=== PATIENT | female | born 1980 | race Caucasian/White ===

== ENCOUNTER 2023-01-25 22:54 | Emergency (ER) | payer OTHER, BC, SELFPAY ==
[2023-01-25 23:06] VITALS: BP 123/68; PULSE 80; RESP 14; TEMP 36.8; O2SAT 98
--- NOTE | 2023-01-25 23:17 | PC.NURSE ---
no information re: post accident testing, [employer] Jeferson called at [phone] and Jeferson states this is his first night on the job and has not yet been trained but will go back to office and look at policies and call ER back with more information. Nurse notified
--- NOTE | 2023-01-25 23:21 | PC.NURSE ---
Patient states she was at work when her foot was ran over by a [employer]. fell to the ground with the machine, was wearing steel toe boots. has mild pain and full ROM of affected foot. patient able to ambulate with steady gait, pulses intact. patient has light abrasions to front ankle and start of swelling to outer left side. patient states pain is minimal. was brought over by her physical therapy supervisor for evaluatiion. patient is workmans comp.
--- NOTE | 2023-01-25 23:26 | XR_ITS ---
The [address] [address] Patient Name: JOSEPHINE JOYNER MRN: [id number] date: 1980 Sex: F Assigned Patient Location: ER Current Patient Location: ED.MAIN Accession/Order Number: [id number] Exam Date: 01/25/2023 23:35 Report Date: 01/26/2023 00:08 At the request of: DILLAN MARKER Procedure: XR tibia fibula LT 2V EXAM: XR ankle LT min 3V, XR tibia fibula LT 2V HISTORY: injury COMPARISON: None. TECHNIQUE: 2 views of the left tibia and fibula and 3 views of the left ankle were obtained. FINDINGS: No acute fracture or dislocation is seen. The ankle mortise is congruent. The joint spaces are preserved. There is a possible small left ankle joint effusion. There is soft tissue edema overlying the anterior aspect of the ankle. XR/XR tibia fibula LT 2V IMPRESSION: 1. Soft tissue edema overlying the anterior aspect of the left ankle with a possible ankle joint effusion. No acute fracture or dislocation is seen. If pain persists, repeat radiographs are recommended in 7-10 days. Electronically authenticated by: Teo WHEELER Date: 01/26/2023 00:08
--- NOTE | 2023-01-25 23:26 | XR_ITS ---
The [address] [id number] Patient Name: JOSEPHINE JOYNER MRN: [id number] date: 1980 Sex: F Assigned Patient Location: ER Current Patient Location: ED.MAIN Accession/Order Number: [id number] Exam Date: 01/25/2023 23:35 Report Date: 01/26/2023 00:08 At the request of: DILLAN MARKER Procedure: XR ankle LT min 3V EXAM: XR ankle LT min 3V, XR tibia fibula LT 2V HISTORY: injury COMPARISON: None. TECHNIQUE: 2 views of the left tibia and fibula and 3 views of the left ankle were obtained. FINDINGS: No acute fracture or dislocation is seen. The ankle mortise is congruent. The joint spaces are preserved. There is a possible small left ankle joint effusion. There is soft tissue edema overlying the anterior aspect of the ankle. XR/XR ankle LT min 3V IMPRESSION: 1. Soft tissue edema overlying the anterior aspect of the left ankle with a possible ankle joint effusion. No acute fracture or dislocation is seen. If pain persists, repeat radiographs are recommended in 7-10 days. Electronically authenticated by: Teo WHEELER Date: 01/26/2023 00:08
--- NOTE | 2023-01-25 23:27 | ED_ITS ---
HPI - Extremity Injury (Lower) General Chief Complaint: Extremity Injury, Lower Stated Complaint: LEFT FOOT Time Seen by Provider: 01/25/23 23:08 Source: patient Mode of arrival: walk-in History of Present Illness HPI Narrative: This 42-year-old female presents for evaluation of left distal tibia-fibula and left ankle injury. The patient was at work and was using a pallet alfonso. She states that there was a piece of wood stuck underneath the pallet so she backed up to release the piece of wood at which time it flew into her foot and twisted her left ankle and struck her in the left distal tibia-fibula area. She states that she sat down on the floor when this happened. She did not fall. She took some Tylenol prior to arrival. She denies any head or neck pain. She has some mild swelling of the lateral malleolus on the left ankle and some superficial abrasions to the medial aspect of the left lower leg. There is no numbness or tingling. She was wearing work boots at the time. She has been ambulatory since the injury and her supervisor microbiology technologists brought her to the emergency department. Related Data Home Medications Medication Instructions Recorded Confirmed paroxetine HCl 20 mg tablet 20 mg PO DAILY 01/25/23 01/25/23 Allergies Allergy/AdvReac Type Severity Reaction Status Date / Time cefaclor [From Ceclor] Allergy Severe Verified 01/25/23 23:06 fexofenadine [From Mohini-D] Allergy Severe Verified 01/25/23 23:06 pseudoephedrine Allergy Severe Verified 01/25/23 23:06 [From Mohini-D] Review of Systems ROS Status of ROS 10 or more systems reviewed and unremarkable except as noted in history and below Exam Narrative Exam Narrative: Nurses note and vital signs reviewed and patient is not hypoxic. General: The patient appears well and in no apparent distress. Patient is resting comfortably on cart. Skin: Warm, dry, no pallor noted. There is no rash noted. Head: Normocephalic, atraumatic Eye: Normal conjunctiva, no drainage, EOMI. PERRL Ears, Nose, Mouth, and Throat: oral mucosa is moist. Nares patent. Mouth without vesicles. Ear canals patent. Tm's without Erythema Cardiovascular: Regular Rate and Rhythm Respiratory: Patient is in no distress, no accessory muscle use, lungs are clear to auscultation, no wheezing, rales or rhonchi Back: non-tender, no CVA tenderness bilaterally to percussion. GI: Normal bowel sounds, no tenderness to palpation, no masses appreciated. No rebound, guarding, or rigidity noted. Musculoskeletal: There He is mild swelling of the left medial malleolus with some mild tenderness. There is no 5th metatarsal tenderness. There is superficial abrasions on the medial aspect of the left lower leg. Ankle joint is stable. There is no calf swelling or tenderness. Toes are intact and are noninjured. Neurological: A&O x4, normal speech Psychiatric: Cooperative Constitutional Vital Signs, click to edit/add: Last Vital Signs Temp 98.2 F 01/25/23 23:06 Pulse 80 01/25/23 23:06 Resp 14 01/25/23 23:06 BP 123/68 01/25/23 23:06 Pulse Ox 98 01/25/23 23:06 O2 Del Method Room Air 01/25/23 23:06 Course Vital Signs Vital signs: Vital Signs Temperature 98.2 F 01/25/23 23:06 Pulse Rate 80 01/25/23 23:06 Respiratory Rate 14 01/25/23 23:06 Blood Pressure 123/68 01/25/23 23:06 Pulse Oximetry 98 01/25/23 23:06 Oxygen Delivery Method Room Air 01/25/23 23:06 Temperature 98.2 F 01/25/23 23:06 Pulse Rate 80 01/25/23 23:06 Respiratory Rate 14 01/25/23 23:06 Blood Pressure 123/68 01/25/23 23:06 Pulse Oximetry 98 01/25/23 23:06 Oxygen Delivery Method Room Air 01/25/23 23:06 MDM - Extremity Injury (Lower) MDM Narrative Medical decision making narrative: This 42-year-old female presents for evaluation of an injury to her left lower leg it occurred at work when she was using a pallet alfonso to change Material and a piece of wood was stuck under the pallet alfonso she reversed it and the piece of wood jumped back and twisted her foot and ankle. She has some superficial abrasions to the medial aspect of the left lower leg, left distal tibia area and some tenderness and swelling to the left lateral malleolus. She is neurovascularly intact. This was updated. She was medicated with ibuprofen. X- rays of the left ankle and left tibia-fibula were reviewed by myself and are normal. A bacitracin dressing and kaley wrap was applied for comfort. Be discharged to follow up with outpatient [facility] Discharge Plan Discharge Chief Complaint: Extremity Injury, Lower Clinical Impression: Contusion of ankle, left, Contusion of left lower leg Patient Disposition: Home, Self-Care Time of Disposition Decision: 00:09 Condition: Good Prescriptions / Home Meds: No Action paroxetine HCl 20 mg tablet 20 mg PO DAILY Instructions: Contusion in Adults (ED) Additional Instructions: Follow up with [facility] for further evaluation and treatment. Use ice, ibuprofen and tylenol as needed for pain Stand Alone Forms: Portal Instructions Referrals: Physician,Non-Staff, MD [Primary Care Provider] - 1 week
[2023-01-25] MEDS: IBUPROFEN 600 MG TABLET PO (23:41)
[2023-01-25] MEDS: ADACEL DIPH,PERTUSS(ACELL),TET VAC/PF 0.5 ML ADULT SYRINGE IM (23:41)
--- NOTE | 2023-01-25 23:56 | PC.NURSE ---
JORDAN Lo maintenance and utilities supervisor Jeferson returned call to inform this nurse that he is unable to find a policy on post accident testing. This nurse informed maintenance and utilities supervisor that the rest of the worker comp paper work will be completed by pt and and pt will need to follow up with [facility] tomorrow. Con[employer] Operator Jeferson verbalized understanding and plans to discuss the post accident testing needs for company if needed.
== END 2023-01-26 00:53 | disposition home or self-care (01) ==
PROVIDERS: Emergency Provider Emergency Medicine
DX: S90.02XA Contusion of left ankle, initial encounter (principal); S80.12XA Contusion of left lower leg, initial encounter; W22.8XXA Striking against or struck by other objects, initial encounter; Z23 Encounter for immunization
CPT/HCPCS: 73590; 73610; 90471; 90715; 99284

== ENCOUNTER 2023-03-01 08:36 | Outpatient (OUT) | payer OTHER, BC, SELFPAY ==
--- NOTE | 2023-03-01 08:42 | XR_ITS ---
The [address] [address] Patient Name: JOSEPHINE JOYNER MRN: [id number] date: 1980 Sex: F Assigned Patient Location: RAD Current Patient Location: RAD Accession/Order Number: [id number] Exam Date: 03/01/2023 09:00 Report Date: 03/01/2023 10:32 At the request of: DONNA LYNNE Procedure: XR ankle LT min 3V PROCEDURE: XR ankle LT min 3V DATE: 03/01/2023 8:00 AM CDT COMPARISONS: None CLINICAL INDICATION: Left Ankle Sprain FINDINGS: There is no evidence of fractures or other osseous abnormalities. The area of bruising is marked on the images without metallic BB. No abnormality seen of the soft tissues with special attention paid to the area of bruising. The ankle mortise is intact. Slight soft tissue prominence anterior and posterior to the tibiotalar joint space on lateral view which could represent ankle joint effusion. Similar findings were seen on previous exam. XR/XR ankle LT min 3V IMPRESSION: Left ankle radiographs show no evidence of osseous abnormalities. Possible ankle joint effusion. Electronically authenticated by: KIM HOLGUIN Date: 03/01/2023 10:32
== END 2023-03-01 08:37 | disposition home or self-care (01) ==
LOC: RAD 08:38
PROVIDERS: Visit Provider Nurse Practitioner Family
DX: S93.402A Sprain of unspecified ligament of left ankle, initial encounter (principal)
CPT/HCPCS: 73610

== ENCOUNTER 2023-03-26 10:06 | Outpatient (OUT) | payer OTHER, SELFPAY ==
--- NOTE | 2023-03-26 10:13 | MR_ITS ---
The [address] [address] Patient Name: JOSEPHINE JOYNER MRN: [id number] date: 1980 Sex: F Assigned Patient Location: MRI Current Patient Location: MRI Accession/Order Number: [id number] Exam Date: 03/26/2023 10:26 Report Date: 03/26/2023 12:00 At the request of: DONNA LYNNE Procedure: MR ankle LT wo con MR ankle LT wo con, 03/26/2023 10:26 AM EDT INDICATION: Left Ankle Injury COMPARISON: X-ray dated 03/01/2023 TECHNIQUE: Multiplanar and multisequential MR images of the left ankle were obtained without contrast . FINDINGS: Muscles and tendons: There is fluid along the peroneus longus from fibula to the distal visualized portion of the tendon and along the flexor hallucis longus and posterior tibialis suggesting of tenosynovitis. The remainder of flexor and extensor tendons and muscles are unremarkable. No abnormality of the peroneus brevis is noted. Achilles tendon is unremarkable. Bone: There is an osteochondral lesion with bone marrow edema along the anterolateral tibial cartilage is noted measuring 7.2 mm (bookmarks). No cortical breach is noted. There is associated increased intra-articular joint effusion. Reactive bone marrow edema along the medial aspect of talus is noted likely contusion. No other osseus lesion is noted. No fracture or dislocation is noted. Sinus Tarsi: No abnormality of sinus Tarsi is noted. Plantar fascia: The plantar fascia is unremarkable. Ligaments: The deep and superficial portions of deltoid are unremarkable. The lateral ligaments are unremarkable. The visualized portion of Lisfranc ligament is unremarkable. No soft tissue abnormality is noted. MR/MR ankle LT wo con IMPRESSION: 1. Osteochondral lesion along the anterolateral aspect of left tibia with increase tibiotalar joint effusion. No cortical breach. 2. Contusion of the medial aspect of the talus. No fracture. 3. Tenosynovitis of the left peroneus longus, tibialis posterior and flexor hallucis longus. Electronically authenticated by: J LUIS FERNANDEZ Date: 03/26/2023 12:00
== END 2023-03-26 10:07 | disposition home or self-care (01) ==
LOC: MRI 10:06
PROVIDERS: Visit Provider Nurse Practitioner Family
DX: S99.912A Unspecified injury of left ankle, initial encounter (principal); X58.XXXA Exposure to other specified factors, initial encounter; M67.874 Other specified disorders of tendon, left ankle and foot
CPT/HCPCS: 73721

== ENCOUNTER 2023-04-23 12:54 | Outpatient (RCR) | payer OTHER, SELFPAY | END 2023-06-24 07:00 | disposition home or self-care (01) | LOC: PT 12:54 | PROVIDERS: Visit Provider Podiatrist Foot & Ankle Surgery | DX: M76.70 Peroneal tendinitis, unspecified leg (principal); M76.829 Posterior tibial tendinitis, unspecified leg | CPT/HCPCS: 97010; 97014; 97110; 97112; 97162 ==

== ENCOUNTER 2023-05-24 09:13 | Outpatient (OUT) | payer OTHER, SELFPAY ==
--- NOTE | 2023-05-24 | XR_ITS ---
The [address] [address] Patient Name: JOSEPHINE JOYNER MRN: [id number] date: 1980 Sex: F Assigned Patient Location: [facility] Current Patient Location: Accession/Order Number: [id number] Exam Date: 05/24/2023 09:30 Report Date: 05/25/2023 12:29 At the request of: MELISSA DUKE Procedure: XR ankle LT min 3V PROCEDURE: XR ankle LT min 3V HISTORY: LEFT ANKLE PAIN follow-up COMPARISON: XR ankle left 03/01/2023 FINDINGS: BONES:No fracture, dislocation, periosteal reaction. Small lucency along anterior margin of the tibial plafond may represent the osteochondral lesion along the anterior lateral margin of the tibia described on prior MRI. SOFT TISSUES:No visible soft tissue swelling. EFFUSION:None visible. OTHER: Negative. XR/XR ankle LT min 3V IMPRESSION: 1. No acute bone abnormality or significant degenerative joint disease. Electronically authenticated by: JOSE ROJAS Date: 05/25/2023 12:29
== END 2023-05-24 09:14 | disposition home or self-care (01) ==
PROVIDERS: Visit Provider Physician Assistant
DX: M25.572 Pain in left ankle and joints of left foot (principal)
CPT/HCPCS: 73610

== ENCOUNTER 2023-06-19 09:25 | Outpatient (OUT) | payer OTHER, SELFPAY ==
--- NOTE | 2023-06-19 09:29 | CT_ITS ---
[address] [address] Patient Name: JOSEPHINE JOYNER MRN: [id number] date: 1980 Sex: F Assigned Patient Location: CT Current Patient Location: CT Accession/Order Number: [id number] Exam Date: 06/19/2023 09:44 Report Date: 06/19/2023 10:41 At the request of: DONNA LYNNE Procedure: CT ankle LT wo con EXAMINATION: CT ankle LT wo con HISTORY: contusion of lt ankle COMPARISON: XR ankle left 05/24/2023 TECHNIQUE: Multi-planar CT images were created without and/or with IV contrast according to examination type. Dose reduction techniques were achieved by using automated exposure control and/or adjustment of mA and/or kV according to patient size and/or use of iterative reconstruction technique. FINDINGS: BONES: Small, thin cortical irregularity involving the anterior margin of the tibial plafond suspicious for remote cortical disruption. No articular surface involvement. SOFT TISSUES: Negative. No visible soft tissue swelling. EFFUSION: None visible. OTHER: Negative. CT/CT ankle LT wo con IMPRESSION: 1. Suspect subacute small, subtle cortex fracture at the anterior margin of the tibial plafond; no articular surface involvement. 2. No appreciable soft tissue swelling. Electronically authenticated by: JOSE ROJAS Date: 06/19/2023 10:41
== END 2023-06-19 09:26 | disposition home or self-care (01) ==
LOC: CT 09:25
PROVIDERS: Visit Provider Nurse Practitioner Family
DX: S90.02XA Contusion of left ankle, initial encounter (principal)
CPT/HCPCS: 73700

== ENCOUNTER 2023-07-25 10:34 | Outpatient (OUT) | payer SELFPAY ==
--- OUTSIDE RECORDS SUMMARY | 2023-07-25 10:44 | XMS_ITS | CCD ---
Author Name Unknown Address [address] [place] [id number] Organization [facility] Care Team Providers Care Compliance Investigator Name Role Phone ANDI ALCALA Unavailable Unavailable ANDI ALCALA Unavailable Unavailable ANDI ALCALA Unavailable Unavailable SULAIMAN REEDER Unavailable Unavailable SULAIMAN REEDER Unavailable Unavailable RADHA CUTLER Unavailable Unavailable SULAIMAN REEDER Unavailable Unavailable NON STAFF Primary Care Unavailable Nate Juárez Attending Unavailab Nate Olguin Admitting Unavailab le Allergies Allergy Classification Reported Allergen(s) Allergy Type Date of Onset Reaction(s) Facility (1 source) hydrocortisone / neomycin Drug Allergy 7 AOF [facility] Repository (1 source) Unable to Assess Drug allergy (disorder) 4 [facility] Repository Problems Active Problems Problem Classification Problem Date Documented Da te Episodic/Chronic Headache, including migraine (1 source) Migraine, unspecified, not intractable, without status migrainosus; Translations: [MIGRAINE UNS NOT INTRACT W/O SM] Onset: 03-23-2017 Chronic Substance-related disorders (1 source) Nicotine dependence, cigarettes, uncomplicated; Translations: [NICOTINE DEPEND CIGARETTES UNCOMP] Onset: 08-09-2017 Chronic Unclassified (1 source) Unspecified coma; Translations: [Unspecified coma] Onset: 07-16-2023 Past or Other Problems Problem Classification Problem Date Documented Da te Episodic/Chronic Fever of unknown origin (3 sources) Fever, unspecified; Translations: [FEVER UNSPECIFIED] Onset: 08-07-2017 Episodic Headache, including migraine (3 sources) Headache; Translations: [HEADACHE] Onset: 03-19-2017 Episodic Nausea and vomiting (1 source) Nausea with vomiting, unspecified; Translations: [NAUSEA WITH VOMITING UNSPECIFIED] Onset: 08-09-2017 Episodic Other upper respiratory infections (1 source) Acute upper respiratory infection, unspecified; Translations: [ACUTE UP RESPIRATORY INFECTION UNS] Onset: 08-09-2017 Episodic Viral infection (1 source) Viral infection, unspecified; Translations: [VIRAL INFECTION UNSPECIFIED] Onset: 08-09-2017 Episodic Results Test Name Value Interpretation Reference Range Facility MR head/brain wo/w conon MR head/brain wo/w con [facility] [place] [address] [place] [address] MRI Report Signed Patient: Jana Talbot MR#: [id number] : 1980 Acct:[id number] Age/Sex: 42 / F ADM Date: 07/16/23 Loc: MR Room: Type: [facility] Attending Dr: Nate Juárez DO Copies to: Nate Juárez DO Ordering Provider: Nate Juárez DO Date of Service: 07/16/23 MR/MR head/brain wo/w con: R40.20 MR head/brain wo/w con 07/16/2023 3:02 PM SIGN AND SYMPTOMS: Syncopal episode PROTOCOL: Multiplanar multisequence MR images of the brain were obtained with and without IV contrast CONTRAST: 11 mL of intravenous ProHance COMPARISON: None. FINDINGS: Extra axial spaces: Age appropriate. Hemorrhage: None. Ventricular system: Within normal limits. Basal cisterns: Within normal limits and not effaced. Cerebral parenchyma: Nonspecific T2 and FLAIR hyperintense signal is noted in the subcortical white matter of the frontal lobes bilaterally. Midline shift: None.. Cerebellum: Within normal limits. Brainstem: Within normal limits. OTHER: Calvarium: Normal marrow signal. Vascular system: Satisfactory flow voids within the anterior and posterior circulation. Visualized Paranasal sinuses: Within normal limits. Visualized Orbits: Within normal limits. Visualized upper cervical spine: Within normal limits. Sella and skull base: Within normal limits. MR/MR head/brain wo/w con IMPRESSION: Nonspecific T2 and FLAIR hyperintense signal is noted in the subcortical white matter of the frontal lobes bilaterally. No acute intracranial pathology or abnormal postcontrast enhancement. Impression dictated by: Andi Juárez M.D.07/16/2023 5:06 PM Dictation Location: [place] [address] Transcribed By: BRIDGETT 07/16/231705 Dictated By: Andi Juárez II, MD 07/16/238 Signed By: 07/16/23 170 Normal [facility] Outside Recordson 09-19-2022 Outside Records [id number]:127 Normal [facility] CBC AUTO DIFFon 08-07-2017 Basophils Auto #/vol (Bld) 0.1 103/ul Normal 0.0-0.1 [facility] Comment on above: Performed By: #### C BC ####[facility] [address] [place] [id number] Basophils/100 WBC Auto (Bld) 0.8 % Normal 0.2-2.0 [facility] Comment on above: Performed By: #### C BC ####[facility] Xhmcdumnho5402 [place], [place] [address]Dvbwbz [place] Eosinophils 0.0 103/ul Normal 0.0-0.7 [facility] Comment on above: Performed By: #### C BC ####[facility] Pbsmcymwcs6750 [place] [id number] [place] Eosinophils/100 leukocytes 0.6 % Critically low 0.9-7.0 [facility] Comment on above: Performed By: #### C BC ####[facility] Flpfiayxtd1523 [place], [place] [address]Vyvvbp [place] Erythrocyte distribution width Auto Ratio (RBC) 12.9 % Normal 11.0-15.0 [facility] Comment on above: Performed By: #### C BC ####[facility] Ywbyjouvnc0309 [place], [place] [address]Jafphf [place] Erythrocytes (RBC) 4.87 106/ul Normal 4.20-5.40 [facility] Comment on above: Performed By: #### C BC ####[facility] Uaphxclzpa6886 [place], [place] [address]Kxpdfq [place] Hematocrit (HCT) 41.7 % Normal 36.0-48.0 [facility] Comment on above: Performed By: #### C BC ####[facility] Kdtre[address]qyd[address] [place] Hemoglobin mass conc (Bld) 13.4 g/dL Normal 12.0-16.0 [facility] Comment on above: Performed By: #### C BC ####[facility] Ryblcjftdz1427 [address] [place] IG # 0.02 10e3/ul Normal 0.00-0.03 [facility] Comment on above: Performed By: #### C BC ####[facility] [address] [place] [address] [place] IG % 0.3 % Normal 0.0-0.5 [facility] Comment on above: Performed By: #### C BC ####[facility] [address] [place] [address] [place] Lymphocytes 0.9 103/ul Critically low 1.2-3.8 [facility] Comment on above: Performed By: #### C BC ####[facility] [address] [place] [address] [place] Lymphocytes/100 leukocytes 13.0 % Critically low 20.5-60.0 [facility] Comment on above: Performed By: #### C BC ####[facility] [address] [place] [address] [place] MANUAL DIFF REQ NO Normal [facility] Comment on above: Performed By: #### C BC ####[facility] [address] [place] [address] [place] MCH 27.5 pg Normal 26.7-34.0 [facility] Comment on above: Performed By: #### C BC ####[facility] [address] [place] [address] [place] MCHC mass conc (RBC) 32.1 g/dL Normal 29.9-35.2 [facility] Comment on above: Performed By: #### C BC ####[facility] [address] [place] [address] [place] MCV 85.6 fL Normal 81.0-99.0 [facility] Comment on above: Performed By: #### C BC ####[facility] Zqfcvozpjo8933 [place], [place] [address]Irdwuw [place] Monocytes 0.7 103/ul Normal 0.3-0.8 [facility] Comment on above: Performed By: #### C BC ####[facility] Zfknmjnpvj8984 [place], [place] [address]Roanru [place] Monocytes/100 leukocytes 10.2 % Normal 1.7-12.0 [facility] Comment on above: Performed By: #### C BC ####[facility] Eibgdqaihy5353 [place], [place] [address]Exfthx [place] Neutrophils 5.0 103/ul Normal 1.4-6.5 [facility] Comment on above: Performed By: #### C BC ####[facility] Ynublbhrrp3901 [place], [place] [address]Devpit [place] Neutrophils/100 WBC Auto (Bld) 75.1 % Critically high 43.0-75.0 [facility] Comment on above: Performed By: #### C BC ####[facility] Yqoukziczc6300 [place], [place] [address]Jwhlxl [place] Platelet mean volume (PMV) 10.7 fL Normal 9.5-13.5 [facility] Comment on above: Performed By: #### C BC ####[facility] Ostfxupbof2119 [place], [place] [address]Lrhusr [place] Platelets 337 103/ul Normal 150-450 [facility] Comment on above: Performed By: #### C BC ####[facility] Vgirxrptxw2394 [place], [place] [address]Teiffp [place] WBC (Leukocytes) 6.6 103/ul Normal 4.0-11.0 [facility] Comment on above: Performed By: #### C BC ####[facility] Auxwtlhxae2833 [place], [place] [address]Aediws [place] CULTURE URINEon 08-07-2017 CULTURE URINE Culture Observations: PRELIM ABNORMAL NOTFD FAXD PATRICE@/18/ RK Culture Observations: Final, scanned result to follow in HPF Normal [facility] Comment on above: Performed By: #### C RADHA ####[facility] Mbcazcrjgt3110 [address] [place] ER URINE PROFILEon 8 Bilirubin (total) Negative Normal NEGATIVE [facility] Comment on above: Performed By: #### Artis JIMENEZ UMICRO ####[facility] Hmloplajqf4023 [address] [place] BLOOD TRACE-INTACT Normal NEGATIVE [facility] Comment on above: Performed By: #### LUIS NEWTONICRO ####[facility] Sdxjzwaqyy3286 [address] [place] ERUAHD A micrscopic examination will be performed if indicated. Normal [facility] Comment on above: Performed By: #### Artis JIMENEZ UMICRO ####[facility] Ymtsaqxkxf2290 [address] [place] Glucose mass conc Negative Normal NEGATIVE [facility] Comment on above: Performed By: #### Artis JIMENEZ UMICRO ####[facility] Ygykepakob7795 [address] [place] pH of blood 7.0 [pH] Normal 5-9 [facility] Comment on above: Performed By: #### Artis JIMENEZ UMICRO ####[facility] Ivwnhmywfl0633 [address] [place] Protein Negative Normal [facility] Comment on above: Performed By: #### Artis JIMENEZ UMICRO ####[facility] Cvnvljlgog6718 [address] [place] SPEC GRAVITY 1.015 Normal 1.005-<=1.025 [facility] Comment on above: Performed By: #### Artis JIMENEZ UMICRO ####[facility] Fzwzskgcvv42[address] [place] UR MICRO IND INDICATED Normal [facility] Comment on above: Performed By: #### LUIS NEWTONICRO ####[facility] Ydjqazrwmb3537 [place] [id number] Urine, clarity CLEAR Normal [facility] Comment on above: Performed By: #### NELLI NEWTON ####[facility] Ebbpejjujn3573 [place] [address]ken [place] Urine, color LT. YELLOW Normal YELLOW [facility] Comment on above: Performed By: #### SHREE NEWTONRO ####[facility] Fouhwsvkzi9756 [place] [address]ken [place] Urine, ketones presence Negative Normal NEGATIVE [facility] Comment on above: Performed By: #### SHREE NEWTONRO ####[facility] Hkgewzyscy3854 [address] [place] Urine, nitrite presence Positive Normal NEGATIVE [facility] Comment on above: Performed By: #### SHREE NEWTONRO ####[facility] [address] [place] [address] [place] Urine, urobilinogen 0.2 {Poli'U}/dL Normal [facility] Comment on above: Performed By: #### SHREE NEWTONRO ####[facility] Virsceujgj[address] [place] [address] [place] WBC (Leukocytes) Negative Normal NEGATIVE [facility] Comment on above: Performed By: #### SHREE NEWTONRO ####[facility] Byuglxncnx0063 [address] [place] PREG HCG QUALon 08-07-2017 , QUAL Negative Normal NEGATIVE [facility] Comment on above: Performed By: #### P REG ####[facility] [address] [place] [address] [place] PROF 14(COMP METB)on 018 Alanine aminotransferase (ALT) 28 U/L Normal 9- [facility] Comment on above: Performed By: #### C MP ####[facility] [address] [place] [address] [place] Albumin 4.5 g/dL Normal 3.5-5.0 [facility] Comment on above: Performed By: #### C MP ####[facility] Inbkfiazov9661 [address] [place] Albumin/Globulin Ratio 1.5 {ratio} Normal T [facility] Comment on above: Performed By: #### C MP ####[facility] Peecwcuwcc8177 [place] [address]ken [place] Alkaline phosphatase (ALP) 71 U/L Normal 38-126 [facility] Comment on above: Performed By: #### C MP ####[facility] Q[address] [place] [address] [place] Anion gap 14.5 mmol/L Normal [facility] Comment on above: Performed By: #### C MP ####[facility] [address]ty[address] [place] [address] [place] Aspartate aminotransferase (AST) 18 U/L Normal 14-36 [facility] Comment on above: Performed By: #### C MP ####[facility] [address]fci[address] [place] [address] [place] Bilirubin Ql (U) 0.3 mg/dL Normal 0.2-1.3 [facility] Comment on above: Performed By: #### C MP ####[facility] [address] [place] [address] [place] BUN/Creatinine Ratio 7.8 mg/mg Normal [facility] Comment on above: Performed By: #### C MP ####[facility] [address] [place], [place] [address]Ger[address] [place] Calcium 9.6 mg/dL Normal 8.4-10.2 [facility] Comment on above: Performed By: #### C MP ####[facility] [address]arqs[address] [place], [place] [address] [place] Chloride 99 mmol/L Normal 98-107 [facility] Comment on above: Performed By: #### C MP ####[facility] [address]vens[address] [place], [place] [address] [place] CO2 25.0 mmol/L Normal 22.0-30.0 [facility] Comment on above: Performed By: #### C MP ####[facility] Svvqvgebdm2234 [place] [address] Creatinine 0.73 mg/dL Normal 0.52-1.04 [facility] Comment on above: Performed By: #### C MP ####[facility] Fmmlaibfiz7525 [place], [place] [address]Xzhwag [place] eGFR (non-black) mL/min/{1.73_m2} Normal >=60 [facility] Comment on above: Performed By: #### C MP ####[facility] Sdmstibgij2490 [place] [address] Globulin 3.1 g/dL Normal [facility] Comment on above: Performed By: #### C MP ####[facility] [address] [place], [place] [address]Gerken [place] Glucose mass conc 108 mg/dL Critically high 74-106 [facility] Comment on above: Performed By: #### C MP ####[facility] [address] [place], [place] [address]Gerken [place] Potassium molar conc 3.6 mmol/L Normal 3.4-5.0 [facility] Comment on above: Performed By: #### C MP ####[facility] [address] [place], [place] [address]Gerken [place] Protein 7.6 g/dL Normal 6.1-8.2 [facility] Comment on above: Performed By: #### C MP ####[facility] Jhzlhgvgvs4086 [place] [address] Sodium 136 mmol/L Critically low 137-145 [facility] Comment on above: Performed By: #### C MP ####[facility] Yfaoegjrgu8977 [place] [address] Urea nitrogen 6.0 mg/dL Critically low 7.0-17.0 [facility] Comment on above: Performed By: #### C MP ####[facility] Ougoczouhz9974 [place], [place] [address]Ejpfqy [place] URINE MICROSCOPIC ONLYon CAST NONE SEEN Normal NONE SEEN [facility] Comment on above: Performed By: #### NELLI NEWTON ####[facility] Vqpcpcckua2980 [place], [place] [address]Oodpxf [place] CULTURE INDICATED Normal [facility] Comment on above: Performed By: #### NELLI NEWTON ####[facility] Vmhxkhcaty1832 [place], [place] [address]Jfgopq [place] Erythrocytes (RBC) 2-5 Normal 0-2 [facility] Comment on above: Performed By: #### NELLI NEWTON ####[facility] Ucplchliyc5058 [place], [place] [address]Ngnpjc [place] MUCOUS NONE SEEN Normal NONE SEEN [facility] Comment on above: Performed By: #### NELLI NEWTON ####[facility] Nnlzmixfzb3541 [place], [place] [address]Zucxyi [place] Urine, bacteria in sediment LARGE Normal NONE SEEN [facility] Comment on above: Performed By: #### NELLI NEWTON ####[facility] Vldcbpwepa8937 [place], [place] [address]Knxqba [place] Urine, crystals in sediment NONE SEEN Normal NONE SEEN [facility] Comment on above: Performed By: #### NELLI NEWTON ####[facility] Ibljgqdhvn2155 [place] [address] Urine, epithelial cells in sediment FEW Normal [facility] Comment on above: Performed By: #### SHREE NEWTONRO ####[facility] Onuunceqfn1297 [place], [place] [address]Ggzycf [place] WBC (Leukocytes) 0-2 Normal NONE SEEN [facility] Comment on above: Performed By: #### SHREE NEWTONRO ####[facility] Ogixrrmjpi4463 [place], [place] [address]Qmheiy [place] Encounters Encounter Date Encounter Type Care Provider Facility Start: 07-16-2023 End: 07-16-2023 ambulatory NON STAFF Facility:[facility] Start: 09-15-2022 ambulatory Facility:[facility] Start: 08-07-2017 End: 08-07-2017 Ambulatory SULAIMAN REEDER Facility:[facility] Start: 03-19-2017 End: 03-19-2017 Ambulatory ANDI ALCALA Facility:[facility] Payers Date Payer Category Payer Self-pay 2023 Unknown [id number] 2010 Unknown [id number] 1980 Unknown [id number] 2.16.8 [id number] 1980 Unknown [id number] 2.16.8 [id number] 1959 Self-pay [id number] Unknown [id number] 2.16.8 [id number] Summary Purpose Family History No Family History Records FoundNo Family History Records FoundNo Family History Records Found Advance Directives No Advanced Directives Records FoundNo Advanced Directives Records FoundNo Advanced Directives Records Found Additional Source Comments INFORMATION SOURCE (unrecogn ized section and content) DATE CREATED AUTHOR [facility]/14/2017 [facility] DATE CREATED AUTHOR AUTHOR'S ORGANIZ ATION 09/23/2022 [facility] DATE CREATED AUTHOR AUTHOR'S ORGANIZ ATION 07/22/2023 [facility] FOR RECORDS PERTAINING TO PATIENTS WHO ARE OR HAVE BEEN ENROLLED IN A CHEMICAL DEPENDENCY/SUBSTANCEABUSE PROGRAM, SOME INFORMATION MAY BE OMITTED. This clinical summary was aggregated from multiple sources. Caution should be exercised in using it in the provision of clinical care. This summary normalizes information from multiple sources, and as a consequence, information in this document may materially change the coding, format and clinical context of patient data. In addition, data may be omitted in some cases. CLINICAL DECISIONS SHOULD BE BASED ON THE PRIMARY CLINICAL RECORDS. [employer] provides no warranty or guarantee of the accuracy or completeness of information in this document.
--- NOTE | 2023-07-25 11:25 | PM.PRESUREVA ---
History of Present Illness History of Present Illness Chief complaint: contusion of left lower leg and left ankle Narrative: Patient presents for preadmission testing. The patient states she had a work injury in January 2023 and has a contusion and pain to her left ankle and lower leg. The patient states she does wear her boot and takes Mobic which helps relieve some pain. She denies numbness, tingling, Or weakness. The patient states she had a syncopal episode/questionable seizure on 06/02/2023 and has been evaluated by advanced neurology and had an MRI and EEG both of which were negative. Review of Systems ROS Narrative REVIEW OF SYSTEMS: Negative except as stated in HPI, ten or more systems reviewed. Constitutional: No fever , chills, weakness ENT: No sore throat or epistaxis Cardiovascular: No edema, chest pain, palpitations, or activity intolerance Respiratory: No shortness of breath, cough, or wheezing Gastrointestinal: No abdominal pain, constipation, diarrhea, or vomiting Genitourinary: No dysuria or hematuria Neurological: No numbness, tingling, weakness, or headache Psychiatric: No mood changes [facility] Medical History (Updated 07/25/23 @ 11:11 by Deisy Hernandez NP) Seasonal allergies ?J30.2 - Other seasonal allergic rhinitis (ICD-10) Depression ?F32.A - Depression, unspecified (ICD-10) Panic attacks ?F41.0 - Panic disorder [episodic paroxysmal anxiety] (ICD-10) Anxiety ?F41.9 - Anxiety disorder, unspecified (ICD-10) Postoperative nausea and vomiting ?R11.2 - Nausea with vomiting, unspecified (ICD-10) ?Z98.890 - Other specified postprocedural states (ICD-10) Urinary tract infection ?N39.0 - Urinary tract infection, site not specified (ICD-10) Seizures (06/02/23) ?R56.9 - Unspecified convulsions (ICD-10) Migraine ?G43.909 - Migraine, unspecified, not intractable, without status migrainosus (ICD-10) Dental abscess ?K04.7 - Periapical abscess without sinus (ICD-10) Ankle pain ?M25.579 - Pain in unspecified ankle and joints of unspecified foot (ICD-10) Contusion of left ankle ?S90.02XA - Contusion of left ankle, initial encounter (ICD-10) Contusion of left lower leg ?S80.12XA - Contusion of left lower leg, initial encounter (ICD-10) Surgical History (Updated 07/25/23 @ 11:03 by Deisy Hernandez NP) History of tubal ligation ?Z98.51 - Tubal ligation status (ICD-10) H/O ovarian cystectomy ?Z98.890 - Other specified postprocedural states (ICD-10) ?Z87.42 - Personal history of other diseases of the female genital tract (ICD-10) H/O section ?Z98.891 - History of uterine scar from previous surgery (ICD-10) Family History (Updated 07/25/23 @ 11:03 by Deisy Hernandez NP) Other Family history of cervical cancer Family history of diabetes mellitus Family history of heart disease Family history of lung cancer Family history of seizures Social History (Updated 07/25/23 @ 10:54 by Deisy Hernandez NP) Smoking status: Current every day smoker What tobacco products do you use: cigarettes Packs per day: 0.25 Years smoked: 25 Smoking pack-years: 6.25 Non-prescribed substance use: denies use Previous occupational history: Senior Revenue Accountant -factory Highest level of school completed/degree received: high school graduate Meds Home Medications and Allergies Home Medications Medication Instructions Recorded Confirmed Type paroxetine HCl 20 mg tablet 20 mg PO DAILY 01/25/23 07/25/23 History meloxicam 7.5 mg tablet 7.5 mg PO BID PRN pain 07/25/23 07/25/23 History sumatriptan succinate 100 mg See Rx Instructions PO .COMPLEX 07/25/23 07/25/23 History tablet (Imitrex) Allergies Allergy/AdvReac Type Severity Reaction Status Date / Time fexofenadine [From Mohini-D] Allergy Severe Verified 01/25/23 23:06 pseudoephedrine Allergy Severe Verified 01/25/23 23:06 [From Mohini-D] Exam Narrative Exam Narrative: Constitutional: Awake, alert, comfortable, well-appearing, nontoxic, interactive, vital signs as charted Head: Normocephalic, atraumatic Neck: Supple, normal appearance, normal range of motion, no meningeal signs, no lymphadenopathy Respiratory: No respiratory distress, breath sounds clear Cardiovascular: Regular rate and rhythm, strong and regular heart tones Musculoskeletal: CAM Walking boot intact left lower extremity Skin: No rashes or induration, no lesions, only visible skin inspected Neuro: No neurological deficits, normal sensation Psychiatric: Oriented ?3, normal affect Assessment and Plan Assessment and Plan (1) Contusion of left ankle: (2) Contusion of left lower leg: Plan Left ankle joint arthroscopy with debridement of cortical lesion and possible backfilling, stress exam, lateral ankle stabilization, soft tissue/tendon repairs scheduled with Dr. Resendiz 08/06/2023.
== END 2023-07-25 10:35 | disposition home or self-care (01) ==
LOC: PST 10:36
PROVIDERS: PCP Nurse Practitioner Family; Visit Provider Podiatrist Foot & Ankle Surgery
DX: Z01.818 Encounter for other preprocedural examination (principal); S80.12XA Contusion of left lower leg, initial encounter; S90.02XA Contusion of left ankle, initial encounter
CPT/HCPCS: G0463

== ENCOUNTER 2023-08-06 06:10 | Day surgery (SDC) | payer OTHER, SELFPAY ==
[2023-07-25 11:19] VITALS: BP 132/76; PULSE 82; RESP 18; TEMP 36.3; O2SAT 97; BMI 19.6
[2023-08-06] VITALS (12 sets, daily range): BP systolic 108–152; BP diastolic 63–84; PULSE 74–117; RESP 13–22; TEMP 36.2–36.4; O2SAT 96–100; BMI 20.8
--- NOTE | 2023-08-06 | FL_ITS ---
[place] [id number] Patient Name: JOSEPHINE JOYNER MRN: [id number] date: 1980 Sex: F Assigned Patient Location: [facility] Current Patient Location: [facility] Accession/Order Number: [id number] Exam Date: 08/06/2023 08:00 Report Date: 08/08/2023 08:24 At the request of: RHONDA RAMIREZ Procedure: FL fluoroscopy <1hr NON-READ EXAM: FL fluoroscopy <1hr NON-READ HISTORY: TECHNIQUE: FINDINGS: Please see Operative Report. Electronically authenticated by: RADIOLOGIST NO Date: 08/08/2023 08:24
--- OUTSIDE RECORDS SUMMARY | 2023-08-06 06:13 | XMS_ITS | CCD ---
Author Name Unknown Address [address] [place] [id number] Organization [facility] Care Team Providers Care Telesales Manager Name Role Phone ANDI ALCALA Unavailable Unavailable [...] / neomycin Drug Allergy 7 [facility] Repository (1 source) Unable to Assess Drug allergy (disorder) 4 [facility] Repository Problems Active Problems Problem Classification Problem [...] head/brain wo/w conon MR head/brain wo/w con [facility] Main [place] [address] [place] [address] MRI Report Signed Patient: Jana Talbot MR#: [id number] : 1980 Acct:[id number] Age/Sex: 42 / F ADM Date: 07/16/23 Loc: MR Room: Type: [facility] Attending Dr: Nate Juárez DO Copies to: [...] Andi Juárez M.D.07/16/2023 5:06 PM Dictation Location: [place] [address] Transcribed By: BRIDGETT 07/16/231705 Dictated By: Andi Juárez II, MD 07/16/238 Signed By: 07/16/23 170 Normal [facility] Outside Recordson 09-19-2022 Outside Records [id number] F0#[id number]:127 Normal [facility] CBC AUTO DIFFon 08-07-2017 Basophils Auto #/vol (Bld) 0.1 103/ul Normal 0.0-0.1 [facility] Comment on above: Performed By: #### C BC ####[facility] Lpuxbklkyt6315 [place] [id number] Basophils/100 WBC Auto (Bld) 0.8 % Normal 0.2-2.0 [facility] Comment on above: Performed By: #### C BC ####[facility] Xurovjqqux2149 [place], [place] [address]Fmqofy [place] Eosinophils 0.0 103/ul Normal 0.0-0.7 [facility] Comment on above: Performed By: #### C BC ####[facility] Vnyuniooae7966 [place] [id number] Eosinophils/100 leukocytes 0.6 % Critically low 0.9-7.0 [facility] Comment on above: Performed By: #### C BC ####[facility] Onbgxxikvn7239 [place], [place] [address]Odsqwx [place] Erythrocyte distribution width Auto Ratio (RBC) 12.9 % Normal 11.0-15.0 [facility] Comment on above: Performed By: #### C BC ####[facility] Wenowfhujz8370 [place], [place] [address]Jhdydf [place] Erythrocytes (RBC) 4.87 106/ul Normal 4.20-5.[address] [facility] Comment on above: Performed By: #### C BC ####[facility] Inqgmlwukv4381 [place], [place] [address]Qdgkmz [place] Hematocrit (HCT) 41.7 % Normal 36.0-48.0 [facility] Comment on above: Performed By: #### C BC ####[facility] Kapafyydln7174 [address] [place] Hemoglobin mass conc (Bld) 13.4 g/dL Normal 12.0-16.0 [facility] Comment on above: Performed By: #### C BC ####[facility] Rynjzcmhsd0726 [address] [place] IG # 0.02 10e3/ul Normal 0.00-0.03 [facility] Comment on above: Performed By: #### C BC ####[facility] [address] [place] [address] [place] IG % 0.3 % Normal 0.0-0.5 [facility] Comment on above: Performed By: #### C BC ####[facility] [address] [place] [address] [place] Lymphocytes 0.9 103/ul Critically low 1.2-3.8 [facility] Comment on above: Performed By: #### C BC ####[facility] [address] [place] [address] [place] Lymphocytes/100 leukocytes 13.0 % Critically low 20.5-60.0 [facility] Comment on above: Performed By: #### C BC ####[facility] [address] [place] [address] [place] MANUAL DIFF REQ NO Normal [facility] Comment on above: Performed By: #### C BC ####[facility] [address] [place] [address] [place] MCH 27.5 pg Normal 26.7-34.0 [facility] Comment on above: Performed By: #### C BC ####[facility] Z[address] [place] [address] [place] MCHC mass conc (RBC) 32.1 g/dL Normal 29.9-35.2 [facility] Comment on above: Performed By: #### C BC ####[facility] [address] [place] [address] [place] MCV 85.6 fL Normal 81.0-99.0 [facility] Comment on above: Performed By: #### C BC ####[facility] Jiyvdhjokw0139 [place], [place] [address]Dqjrbg [place] Monocytes 0.7 103/ul Normal 0.3-0.8 [facility] Comment on above: Performed By: #### C BC ####[facility] Vdukvfqiun6886 [place], [place] [address]Eqmzlq [place] Monocytes/100 leukocytes 10.2 % Normal 1.7-12.0 [facility] Comment on above: Performed By: #### C BC ####[facility] Fnayfldxzh9854 [place], [place] [address]Ijcpyq [place] Neutrophils 5.0 103/ul Normal 1.4-6.5 [facility] Comment on above: Performed By: #### C BC ####[facility] Zrurgtswqy2036 [place], [place] [address]Kgeadb [place] Neutrophils/100 WBC Auto (Bld) 75.1 % Critically high 43.0-75.0 [facility] Comment on above: Performed By: #### C BC ####[facility] Sbvooltzjn4725 [place], [place] [address]Ghqguy [place] Platelet mean volume (PMV) 10.7 fL Normal 9.5-13.5 [facility] Comment on above: Performed By: #### C BC ####[facility] Oxzxqfiwdi5335 [place], [place] [address]Gdivfo [place] Platelets 337 103/ul Normal 150-450 [facility] Comment on above: Performed By: #### C BC ####[facility] Quecpxrvkn5398 [place], [place] [address]Wcowue [place] WBC (Leukocytes) 6.6 103/ul Normal 4.0-11.0 [facility] Comment on above: Performed By: #### C BC ####[facility] Mwibzwdvux1497 [place], [place] [address]Zblpjm [place] CULTURE URINEon 08-07-2017 CULTURE URINE Culture Observations: PRELIM ABNORMAL NOTFD FAXD PATRICE@/18/ RK Culture Observations: Final, scanned result to follow in HPF Normal [facility] Comment on above: Performed By: #### C RADHA ####[facility] Ytpbchxijd3474 [address] [place] ER URINE PROFILEon 8 Bilirubin (total) Negative Normal NEGATIVE [facility] Comment on above: Performed By: #### Artis JIMENEZ UMICRO ####[facility] Hphsnswyus6592 [address] [place] BLOOD TRACE-INTACT Normal NEGATIVE [facility] Comment on above: Performed By: #### LUIS NEWTONICRO ####[facility] Ufpvrgpugo9048 [address] [place] ERUAHD A micrscopic examination will be performed if indicated. Normal [facility] Comment on above: Performed By: #### Artis JIMENEZ UMICRO ####[facility] Uulaumkjab9548 [address] [place] Glucose mass conc Negative Normal NEGATIVE [facility] Comment on above: Performed By: #### Artis JIMENEZ UMICRO ####[facility] Ouhajifrxj3808 [address] [place] pH of blood 7.0 [pH] Normal 5-9 [facility] Comment on above: Performed By: #### Artis JIMENEZ UMICRO ####[facility] Arnsqjrvan5095 [address] [place] Protein Negative Normal [facility] Comment on above: Performed By: #### Artis JIMENEZ UMICRO ####[facility] Kubxicpksf2178 [address] [place] SPEC GRAVITY 1.015 Normal 1.005-<=1.025 [facility] Comment on above: Performed By: #### Artis JIMENEZ UMICRO ####[facility] Mmyyddfgrp8532 [address] [place] UR MICRO IND INDICATED Normal [facility] Comment on above: Performed By: #### LUIS NEWTONICRO ####[facility] Avfewyqdyb9741 [place] [id number] Urine, clarity CLEAR Normal [facility] Comment on above: Performed By: #### NELLI NEWTON ####[facility] Szhaeziddb3284 [place] [id number] Urine, color LT. YELLOW Normal YELLOW [facility] Comment on above: Performed By: #### SHREE NEWTONRO ####[facility] Vnzbbxwnsj9075 [place] [id number] Urine, ketones presence Negative Normal NEGATIVE [facility] Comment on above: Performed By: #### SHREE NEWTONRO ####[facility] Ldhebrlnjn5078 [address] [place] Urine, nitrite presence Positive Normal NEGATIVE [facility] Comment on above: Performed By: #### SHREE NEWTONRO ####[facility] [address] [place] [address] [place] Urine, urobilinogen 0.2 {Poli'U}/dL Normal [facility] Comment on above: Performed By: #### SHREE NEWTONRO ####[facility] [address] [place] [address] [place] WBC (Leukocytes) Negative Normal NEGATIVE [facility] Comment on above: Performed By: #### SHREE NEWTONRO ####[facility] Hxqvczkoha4216 [address] [place] PREG HCG QUALon 08-07-2017 , QUAL Negative Normal NEGATIVE [facility] Comment on above: Performed By: #### P REG ####[facility] [address] [place] [address] [place] PROF 14(COMP METB)on 018 Alanine aminotransferase (ALT) 28 U/L Normal 9- [facility] Comment on above: Performed By: #### C MP ####[facility] [address] [place] [address] [place] Albumin 4.5 g/dL Normal 3.5-5.0 [facility] Comment on above: Performed By: #### C MP ####[facility] Dcnegjptyv4845 [address] [place] Albumin/Globulin Ratio 1.5 {ratio} Normal [facility] Comment on above: Performed By: #### C MP ####[facility] Mnhebxqvbi6565 [place] [id number] Alkaline phosphatase (ALP) 71 U/L Normal 38-126 [facility] Comment on above: Performed By: #### C MP ####[facility] [address] [place] [address] [place] Anion gap 14.5 mmol/L Normal [facility] Comment on above: Performed By: #### C MP ####[facility] [address]ox[address] [place] [address] [place] Aspartate aminotransferase (AST) 18 U/L Normal 14-36 [facility] Comment on above: Performed By: #### C MP ####[facility] [address] [place] [address] [place] Bilirubin Ql (U) 0.3 mg/dL Normal 0.2-1.3 [facility] Comment on above: Performed By: #### C MP ####[facility] [address] [place] [address] [place] BUN/Creatinine Ratio 7.8 mg/mg Normal [facility] Comment on above: Performed By: #### C MP ####[facility] [address] [place], [place] [address]Gerken [place] Calcium 9.6 mg/dL Normal 8.4-10.2 [facility] Comment on above: Performed By: #### C MP ####[facility] [address]fpqxii[address] [place], [place] [address]Ger[address] [place] Chloride 99 mmol/L Normal 98-107 [facility] Comment on above: Performed By: #### C MP ####[facility] [address]zw[address] [place], [place] [address]Ger[address] [place] CO2 25.0 mmol/L Normal 22.0-30.0 [facility] Comment on above: Performed By: #### C MP ####[facility] Gvnnnesjhd7008 [place] [id number] Creatinine 0.73 mg/dL Normal 0.52-1.04 [facility] Comment on above: Performed By: #### C MP ####[facility] Ftolfjstsp7388 [place], [place] [address]Tjljfx [place] eGFR (non-black) mL/min/{1.73_m2} Normal >=60 Th [facility] Comment on above: Performed By: #### C MP ####[facility] Cwmkfsrahb9689 [place] [address] Globulin 3.1 g/dL Normal [facility] Comment on above: Performed By: #### C MP ####[facility] [address] [place], [place] [address]Gerken [place] Glucose mass conc 108 mg/dL Critically high 74-106 Th [facility] Comment on above: Performed By: #### C MP ####[facility] [address] [place], [place] [address]Gerken [place] Potassium molar conc 3.6 mmol/L Normal 3.4-5.0 [facility] Comment on above: Performed By: #### C MP ####[facility] [address] [place], [place] [address]Gerken [place] Protein 7.6 g/dL Normal 6.1-8.2 [facility] Comment on above: Performed By: #### C MP ####[facility] Sellaxfnus6797 [place] [address] Sodium 136 mmol/L Critically low 137-145 [facility] Comment on above: Performed By: #### C MP ####[facility] Ekgvysywmn4084 [place] [address] Urea nitrogen 6.0 mg/dL Critically low 7.0-17.0 [facility] Comment on above: Performed By: #### C MP ####[facility] Viihyposro1357 [place], [place] [address]Atpquj [place] URINE MICROSCOPIC ONLYon CAST NONE SEEN Normal NONE SEEN [facility] Comment on above: Performed By: #### NELLI NEWTON ####[facility] Bxaxilikff2135 [place], [place] [address]Mrhyhd [place] CULTURE INDICATED Normal [facility] Comment on above: Performed By: #### NELLI NEWTON ####[facility] Ulpzdlfkfa2498 [place], [place] [address]Cchuso [place] Erythrocytes (RBC) 2-5 Normal 0-2 [facility] Comment on above: Performed By: #### NELLI NEWTON ####[facility] Bgekibcwcc8640 [place], [place] [address]Egbxli [place] MUCOUS NONE SEEN Normal NONE SEEN [facility] Comment on above: Performed By: #### NELLI NEWTON ####[facility] Tgyppmiidw3088 [place], [place] [address]Nqnvmx [place] Urine, bacteria in sediment LARGE Normal NONE SEEN [facility] Comment on above: Performed By: #### NELLI NEWTON ####[facility] Bomtundbum2158 [place], [place] [address]Gstoog [place] Urine, crystals in sediment NONE SEEN Normal NONE SEEN [facility] Comment on above: Performed By: #### NELLI NEWTON ####[facility] Cxlfgefddy2138 [place] [address] Urine, epithelial cells in sediment FEW Normal [facility] Comment on above: Performed By: #### SHREE NEWTONRO ####[facility] Lzohoopvhi0747 [place], [place] [address]Cxprqf [place] WBC (Leukocytes) 0-2 Normal NONE SEEN [facility] Comment on above: Performed By: #### SHREE NEWTONRO ####[facility] Qxxeasfpjo1273 [place], [place] [address]Fbgfzy [place] Encounters Encounter Date Encounter Type Care Provider Facility Start: 07-16-2023 End: 07-16-2023 ambulatory NON STAFF Facility:[facility] Start: 09-15-2022 ambulatory Facility:[facility] Start: 08-07-2017 End: 08-07-2017 Ambulatory SULAIMAN REEDER Facility:[facility] Start: 03-19-2017 End: 03-19-2017 Ambulatory ANDI ALCALA Facility:[facility] Payers Date Payer Category Payer Self-pay 2023 Unknown [id number] 2010 Unknown [id number] 1980 Unknown [id number] [id number] 1980 Unknown [id number] [id number] 1959 Self-pay [id number] Unknown [id number] 2.16.8 [id number] Summary Purpose Family History No Family History Records FoundNo Family History Records FoundNo Family History Records Found Advance Directives No Advanced Directives Records FoundNo Advanced Directives Records FoundNo Advanced Directives Records Found Additional Source Comments INFORMATION SOURCE (unrecogn ized section and content) DATE CREATED AUTHOR 12/14/2017 [facility] DATE CREATED AUTHOR AUTHOR'S ORGANIZ ATION 09/23/2022 [facility] DATE CREATED AUTHOR AUTHOR'S ORGANIZ ATION 07/22/2023 [facility] FOR RECORDS PERTAINING TO PATIENTS WHO [...] BE BASED ON THE PRIMARY CLINICAL RECORDS. [employer] provides no warranty or guarantee of the accuracy or completeness of information in this document.
[2023-08-06 06:19] LABS: Basophils Absolute Auto 0.1 10^3/uL (0.0-0.1); Basophils Percent Auto 0.6 % (0.2-2.0); Eosinophils Absolute Auto 0.1 10^3/uL (0.0-0.7); Eosinophils Percent Auto 0.8 % (0.9-7.0); Hematocrit 41.7 % (36.0-48.0); Immature Granulocytes Abs Auto 0.04 10^3/uL (0.00-0.03); Immature Granulocytes Pct Auto 0.4 % (0.0-0.5); Lymphocytes Absolute Auto 3.4 10^3/uL (1.2-3.8); Lymphocytes Percent Auto 31.9 % (20.5-60.0); Mean Corpuscular HGB Conc 31.2 g/dL (29.9-35.2); Mean Corpuscular Hemoglobin 28.6 pg (26.7-34.0); Mean Corpuscular Volume 91.9 fL (81.0-99.0); Monocytes Absolute Auto 0.7 10^3/uL (0.3-0.8); Monocytes Percent Auto 6.7 % (1.7-12.0); Neutrophils Absolute Auto 6.3 10^3/uL (1.4-6.5); Neutrophils Percent Auto 59.6 % (43.0-75.0); Platelet Count 358 10^3/uL (150-450); Red Blood Count 4.54 10^6/uL (4.20-5.40); Red Cell Distribution Width 13.2 % (11.0-15.0); White Blood Count 10.6 10^3/uL (4.0-11.0)
[2023-08-06 06:30] LABS: Glucometer 113 mg/dL (74-106)
[2023-08-06 06:32] LABS: HCG Qualitative NEGATIVE (NEGATIVE)
[2023-08-06] MEDS: LACTATED RINGER'S SOLUTION 1,000 ML 50 ML IV ×2 (06:53→09:01)
[2023-08-06] MEDS: CEFAZOLIN SODIUM/DEXTROSE,ISO 2 GM/50 ML PIGGYBACK IV (07:43)
--- NOTE | 2023-08-06 07:53 | PC.NURSE ---
Patient was consented by Dr. Carranza for a nerve block preop. Time out was performed (see documentation). Patient was attached to monitors and O2 at 2 lpm via nc. Positioned on to back in a supine position. Patient medicated per Dr Carranza. Bedside ultrasound was used to perform procedure. Patient tolerated block. Voiced no questions or concerns. Patient remained on monitors until taken to to OR.
--- NOTE | 2023-08-06 09:11 | P.ORON_ITS ---
Brief Operative Note Date of procedure: 08/06/23 Pre-op diagnosis: left ankle/leg contusion Post-op diagnosis: other (left ankle/leg contusion with ankle impingement, osteochondral defect, lateral ankle instability) Procedure: PROCEDURES PERFORMED: 1. Ankle arthroscopy with debridement 2. Lateral ankle stabilization with modified Brostrom-Galvez 3. Ankle arthrotomy with anterior tibial cheilectomy 4. Application of short leg splint with all procedures performed on the LEFT ankle INDICATION FOR PROCEDURE: patient is a 42-year-old female who had left ankle injury at work on 01/25/2023. Patient saw temporary improvement with rest, bracing, immobilization in a cam boot and physical therapy however upon returning back to increased activity her pain quickly returned. Due to her failure of nonsurgical treatment she has CT scan in May which demonstrate cortical regularity the anterior aspect of the distal tibial plafond and cystic changes approximately 0.5 cm in diameter and best noted in the sagittal projection. In addition anterior ankle subluxation is noted and there was additional concern on clinical examination for lateral ankle instability. Due to her failure to respond to nonsurgical care she wished to proceed with surgical intervention. all risks and benefits were discussed and questions were answered to her satisfaction. INTRAOPERATIVE FINDINGS: ankle arthroscopy revealed chronic synovitis with soft tissue impingement. Cartilage of the talar dome was intact with minimal arthritic changes. Osteophytes with surrounding acute and chronic synovitis on the distal aspect of the anterior tibia noted on arthroscopy and once all soft t issue impingement was removed the ankle was placed through range of motion and osseous impingement was notable. Decision was made to perform ankle arthrotomy allowing removal of osteophyte and any remaining synovitis. Once performed no soft tissue or osseous impingement was noted. Stress examination under intraoperative fluoroscopy revealed positive anterior drawer and varus tilt indicating ankle instability. During the disseection for the lateral ankle stabilization it was noted that there was surrounding synovitis and adhesions of the peroneal tendons at the level of the fibular groove. Upon debriding synovitis and releasing adhesions thereby opening the tendon sheath the tendons were without tear however the brevis was flattened. PROCEDURE IN DETAIL: Patient was identified in pre op and consent was reviewed. Correct side and site were identified and marked. Pre-op antibiotics were started. Patient was brought to OR suite and place on table in a supine position. General anesthesia was administered. Tourniquet applied. Operative extremity was prepped and draped in usual sterile fashion. Formal time-out was performed and the foot/ankle were exsanguinated and tourniquet inflated. A 15 blade was used to create anterior medial ankle portal followed by use of hemostat and trochar then the arthroscopic camera was inserted. Anterior lateral portal was similarly created in standard safe location after identifying intermediate dorsal cutaneous nerve. All impingement and synovitic tissue was removed using a 3.5 mm aggressive shaver. No talar dome cartilage defect was noted however there was a anterior tibial osteophyte with significant amount of acute and chronic synovitic tissue. Once all soft tissue impingement was removed osseous impingement was noted. Range of motion examination under arthroscopy. Arthroscopic instrumention was then removed in the medial portal was extended proximally and distally. Comminution sharp and blunt dissection gained access to the anterior tibial plafond and ankle joint. Osteotomes and rongeurs were used to remove the osteophyte and any remaining synovitis. Then a power rasp was used to contour the distal tibia to an anatomic appearance. The ankle was placed under range of motion with the arthroscopic camera as well as with fluoroscopy and there was no soft tissue or osseous impingement remaining. Surgical site was irrigated with copious saline. under live intraoperative fluoroscopy the ankle was stressed in all planes and had a notably positive varus talar tilt and anterior drawer indicating lateral ankle instability therefore decision was made to perform lateral ankle stabilization. a curvilinear incision was placed on the lateral ankle from the level of the fibular groove and distally to the sinus tarsi. Meticulous blunt dissection was used to expose the ATFL and associated capsular tissue. The ATFL was thickend and lax upon stress examination. it was also noticed at this time that the peroneal tendons had surrounding synovitis and when the ankles place her range of motion the tendons did not glide appropriately indicating adhesions (this would be later addressed as explained below). The ATFL and CFL were incised and arthrotomy was performed. The periosteum off of the distal lateral fibula was elevated from the fibular tip. A rongeur was used on the distal anterior fibular malleolus to create a trough. Drill holes were created in the trough created on distal fibula. Two 3.3 mm suture anchors were inserted into the drill holes created according to manufacture's directions. 6 of the sutures were passed through the ATFL then passed through the extensor retinaculum. The remaining 2 sutures were passed through the CFL. The foot was then held in maximum dorsiflexion and eversion and the sutures were tied. The sutures were then passed through the periosteum of the fibula to reapproximate all capsular and periosteal tissue. The sutures were then tied and cut. Anterior drawer was negative and ankle had good ROM. the lateral ankle incision was then extended proximally and synovitis surrounding the peroneal tendon sheath was excised. Tendon sheath was then incised to expose the peroneal tendons. Blunt dissection released any adhesions and further inspection of the tendons revealed low lying muscle belly from the brevis which was excised. synovitis surrounding the tendons was also excised. The longus had normal appearance however the brevis was flattened however no tear was identified. The brevis was re-tubularized with his orbital suture then relocated to the fibular groove. The ankle had normal range of motion tendons are normal excursion without subluxation. The surgical site was irrigated with copious amounts sterile saline. The tendon sheath was reapproximated and the superior peroneal retinaculum repaired with a pants over vest absorbable suture. the incisions were closed in layers and the tourniquet was deflated with a prompt hyperemic response. A dry sterile dressing consisting of Xeroform on the incisions followed by 4 x 4 gauze, ABDs, and Kerlix were applied. Multiple layers of cast padding were then applied to ensure all bony prominences were well-padded. A plaster posterior splint was then applied which was held in place by Luis wraps. Capillary refill time to all digits was evaluated and had appropriate response. POSTOPERATIVE PLAN: Discharge home under family's care Post op instructions provided verbally and written prescription(s) were placed in chart [facility]B operative foot/ankle x1 wks Follow-up in 1 week Implants: Medline suture anchors Anesthesia: regional and General-LMA Surgeon: Ebenezer Resendiz First Crusher: Castillo Fry Estimated blood loss (mL): 10 Pathology: other (osteophyte ankle) Condition: stable Disposition: PACU
[2023-08-06 10:32] LABS: Glucometer 137 mg/dL (74-106)
--- NOTE | 2023-08-06 10:44 | XR_ITS ---
[place] [id number] Patient Name: JOSPEHINE JOYNER MRN: [id number] date: 1980 Sex: F Assigned Patient Location: [facility] Current Patient Location: [facility] Accession/Order Number: [id number] Exam Date: 08/06/2023 10:38 Report Date: 08/06/2023 15:13 At the request of: HERNAN STANTON Procedure: XR ankle LT min 3V PROCEDURE: XR ankle LT min 3V COMPARISON: 05/24/2023 HISTORY: Postop x-ray pacu FINDINGS: BONES:No acute fracture or dislocation. SOFT TISSUES:Postprocedural soft tissue swelling and subcutaneous air EFFUSION:Joint air OTHER: Negative. XR/XR ankle LT min 3V IMPRESSION: Post procedural changes Electronically authenticated by: REGAN SEGOVIA Date: 08/06/2023 15:13
[2023-08-06] MEDS: MEPERIDINE HCL/PF 25 MG/ML VIAL 12.5 MG IVP (10:50)
== END 2023-08-06 11:50 | disposition home or self-care (01) ==
PROVIDERS: PCP Nurse Practitioner Family; Visit Provider Podiatrist Foot & Ankle Surgery
PROC: (CPT 1464; principal; 2023-08-06 07:30)
DX: S80.12XA Contusion of left lower leg, initial encounter (principal); S90.02XA Contusion of left ankle, initial encounter; M25.872 Other specified joint disorders, left ankle and foot; M25.372 Other instability, left ankle; M21.962 Unspecified acquired deformity of left lower leg; J30.2 Other seasonal allergic rhinitis; F32.A Depression, unspecified; F41.9 Anxiety disorder, unspecified; Z87.440 Personal history of urinary (tract) infections; Z98.51 Tubal ligation status; F17.210 Nicotine dependence, cigarettes, uncomplicated
CPT/HCPCS: 27625; 27698; 29898; 36415; 64445; 64447; 73610; 76000; 82948; 84703; 85025; 88305; 88311; C1713; J0690; J1100; J1885; J2175; J2250; J2371; J2405; J2704; J2795; J3010

== ENCOUNTER 2023-11-05 14:23 | Outpatient (RCR) | payer OTHER, SELFPAY | END 2024-01-19 10:16 | disposition home or self-care (01) | LOC: PT 14:23 | PROVIDERS: PCP Nurse Practitioner Family; Visit Provider Podiatrist Foot & Ankle Surgery | DX: M25.372 Other instability, left ankle (principal); S93.402D Sprain of unspecified ligament of left ankle, subsequent encounter; M21.6X2 Other acquired deformities of left foot; S90.02XD Contusion of left ankle, subsequent encounter; S80.12XD Contusion of left lower leg, subsequent encounter; S80.812D Abrasion, left lower leg, subsequent encounter; S39.012D Strain of muscle, fascia and tendon of lower back, subsequent encounter | CPT/HCPCS: 97110; 97112; 97140; 97161; 97530; W0710 ==

== ENCOUNTER 2024-06-02 13:11 | Outpatient (OUT) | payer OTHER, SELFPAY ==
--- NOTE | 2024-06-02 15:51 | PM.CN ---
Consult Note: HPI Data of Consult Patient: new to practice Consult date: 06/02/24 Requesting Physician: Suraj Kelley MD Primary Care Provider: LUL IZAGUIRRE Consult Narrative Reason for consult: low back pain Narrative: 43yof who presents for evaluation. longstanding history of left foot, low back pain after workplace injury. back pain more significant at this point. has completed 6 weeks of physical therapy for this in past 3 months, also has continued in chiropractic therapy, without benefit. no recent imaging available for review. uses otc meds as needed, but does not like to take meds. cc:: CC: Suraj Kelley MD Review of Systems ROS Status of ROS 10 or more systems reviewed and unremarkable except as noted in history and below [facility] Medical History (Updated 06/02/24 @ 15:54 by Suraj Kelley MD) Seasonal allergies ?J30.2 - Other seasonal allergic rhinitis (ICD-10) Depression ?F32.A - Depression, unspecified (ICD-10) Panic attacks ?F41.0 - Panic disorder [episodic paroxysmal anxiety] (ICD-10) Anxiety ?F41.9 - Anxiety disorder, unspecified (ICD-10) Postoperative nausea and vomiting ?R11.2 - Nausea with vomiting, unspecified (ICD-10) ?Z98.890 - Other specified postprocedural states (ICD-10) Urinary tract infection ?N39.0 - Urinary tract infection, site not specified (ICD-10) Seizures (06/02/23) ?R56.9 - Unspecified convulsions (ICD-10) Migraine ?G43.909 - Migraine, unspecified, not intractable, without status migrainosus (ICD-10) Dental abscess ?K04.7 - Periapical abscess without sinus (ICD-10) Ankle pain ?M25.579 - Pain in unspecified ankle and joints of unspecified foot (ICD-10) Contusion of left ankle ?S90.02XA - Contusion of left ankle, initial encounter (ICD-10) Contusion of left lower leg ?S80.12XA - Contusion of left lower leg, initial encounter (ICD-10) Surgical History History of tubal ligation ?Z98.51 - Tubal ligation status (ICD-10) H/O ovarian cystectomy ?Z98.890 - Other specified postprocedural states (ICD-10) ?Z87.42 - Personal history of other diseases of the female genital tract (ICD-10) H/O section ?Z98.891 - History of uterine scar from previous surgery (ICD-10) Family History Other Family history of cervical cancer Family history of diabetes mellitus Family history of heart disease Family history of lung cancer Family history of seizures Social History Within the past year, how often did you have a drink containing alcohol: never Score interpretation: A score less than 3 is consistent with normal alcohol consumption. 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 Highest level of school completed/degree received: high school graduate Meds Home Medications and Allergies Home Medications ?Medication ?Instructions ?Recorded ?Confirmed ?Type paroxetine HCl 20 mg tablet 20 mg PO DAILY 01/25/23 08/06/23 History cyclobenzaprine 10 mg tablet 10 mg PO BID PRN muscle spasm 06/02/24 06/02/24 History ibuprofen 800 mg tablet mg 06/02/24 History propranolol 40 mg tablet 40 mg PO .QD 06/02/24 06/02/24 History Allergies Allergy/AdvReac Type Severity Reaction Status Date / Time fexofenadine (From Mohini-D) Allergy Severe Verified 01/25/23 23:06 pseudoephedrine (From Allergy Severe Verified 01/25/23 23:06 Mohini-D) Exam Narrative Exam Narrative: Psych-alert and oriented x 3. Attentive and appropriate, constitutionally normal, displays normal mood and affect per situation.? There are no obvious deficits in memory, reasoning, or intellect.? Skin-no obvious rashes, bruising, erythema noted to the patient's area of pain. Extremities- extremities are warm with minimal edema and palpable pulses. Lumbar-no significant tenderness to palpation noted in the lumbar spine and paraspinal musculature.? Pain is elicited with extension, and lateral rotation of the lumbar spine. Range of motion is slightly diminished with these motions due to pain. Facet loading maneuvers are positive bilaterally and do appear to be concordant with the patient's normal complaints of pain.? Coordination remains intact.? Gait remains non-antalgic. Assessment and Plan Assessment and Plan (1) Strain of muscle, fascia and tendon of lower back, initial encounter: Plan 43yof who presents for evaluation. failed conservative measures, as noted. given lack of improvement and persistence of symptoms, will have her undergo lumbar and sacral xr. she is in agreement. meds reviewed. will trial flexeril 10mg bid prn. follow up after imaging.
== END 2024-06-02 13:12 | disposition home or self-care (01) ==
LOC: PM 13:12
PROVIDERS: PCP Nurse Practitioner Family; Visit Provider Anesthesiology
DX: S39.012A Strain of muscle, fascia and tendon of lower back, initial encounter (principal)
CPT/HCPCS: G0463